=== PATIENT | male | born 1975 | race Caucasian/White ===

== ENCOUNTER 2016-09-30 23:34 | Emergency (ER) | payer MEDICARE ==
[2016-10-01] MEDS ORDERED: CLINDAMYCIN 600MG/50ML PREMIX 600 MG in DEXTROSE 1 BAG IV ONE (00:03)
--- NOTE | 2016-10-01 00:12 | Emergency Department Record ---
History of Present Illness - General Chief complaint: Toothache Stated complaint: TOOTH PAIN Time Seen by Provider: 10/01/16 00:03 Source: Patient Mode of Arrival: Ambulatory Limitations: No limitations - History of Present Illness Initial comments: 40 yo male presents to ED with a CC of dental pain for the past 2-3 days associated with left sided facial swelling and pain. Patient reports numerous dental caries, however left upper front tooth is tender and swollen. Patient denies health problems at his baseline. MD complaint: Tooth pain Onset/Timin -: Days(s) Location: Tooth # 1 - Dental fracture/caries/pain Severity: Severe Severity scale (1-10): 9 Quality: Aching Consistency: Constant Improves with: None Worsens with: None Context- Dental: History of dental caries, Poor dental care - Related Data Home Medications Medication Instructions Recorded Confirmed Last Taken Alprazolam [Alprazolam] 1 mg PO ASDIR 05/15/16 09/30/16 09/30/16 Gabapentin [Gabapentin] 300 mg PO DAILY 05/15/16 09/30/16 09/30/16 Lisinopril [Zestril] 10 mg PO DAILY 05/15/16 09/30/16 09/30/16 Pantoprazole Sodium [Protonix] 40 mg PO DAILY 05/15/16 09/30/16 09/30/16 Prochlorperazine Maleate 10 mg PO DAILY 05/15/16 09/30/16 09/30/16 [Compazine] Previous Rx's Medication Instructions Recorded Clindamycin HCl [Cleocin HCl] 300 mg PO Q6H #39 capsule 10/01/16 Allergies Allergy/AdvReac Type Severity Reaction Status Date / Time morphine Allergy HIVES Verified 09/30/16 23:41 Travel Screening - Travel/Exposure Within Last 30 Days Have you traveled within the last 30 days?: No - Travel/Exposure Within Last Year Have you traveled outside the [place] in the last year?: No - Additonal Travel Details Have you been exposed to anyone with a communicable illness?: No - Travel Symptoms Symptom Screening: None Review of Systems Constitutional: Denies: Chills, Fever, Malaise, Night sweats Eyes: Denies: Eye discharge, Eye pain ENT: Reports: Dental pain. Denies: Congestion, Ear pain, Epistaxis Respiratory: Denies: Cough, Dyspnea Cardiovascular: Denies: Chest pain, Dyspnea on exertion Endocrine: Denies: Fatigue, Heat or cold intolerance Gastrointestinal: Denies: Abdominal pain, Nausea, Vomiting Genitourinary: Denies: Incontinence, Retention Musculoskeletal: Denies: Arthralgia, Back pain, Gout, Joint swelling Skin: Denies: Bruising, Change in color Neurological: Denies: Abnormal gait, Confusion, Headache, Seizure Psychiatric: Denies: Anxiety Hematological/Lymphatic: Denies: Anemia, Blood Clots Past Medical History - SOCIAL HISTORY Smoking Status: Current every day smoker Alcohol Use: None Drug Use: Heavy Drug Use Detail:: Marijuana - RESPIRATORY Hx Respiratory Disorders: Yes Hx COPD: Yes - CARDIOVASCULAR Hx Cardio Disorders: Yes Hx Edema: Yes Hx Hypertension: Yes Hx Irregular Heartbeat: Yes - NEURO Hx Neuro Disorders: Yes Hx Dizziness: Yes Hx Neuropathy: Yes (FEET) - GI Hx GI Disorders: Yes Hx Reflux: Yes Hx Ulcer: Yes - Hx Genitourinary Disorders: No - ENDOCRINE Hx Endocrine Disorders: No - MUSCULOSKELETAL Hx Musculoskeletal Disorders: Yes Hx Arthritis: Yes Comment:: RIGHT KNEE PAIN, HAS LEFT KNEE PAIN ALSO - PSYCH Hx Psych Problems: Yes Hx Depression: Yes (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) - HEMATOLOGY/ONCOLOGY Hx Hematology/Oncology Disorders: No Family Medical History Any Significant Family History?: No Family Hx Comment (NOT TO BE USED IN PLACE OF ITEMS BELOW): CANCER Hx Alcohol Use: Brother/Sister Hx Anxiety: Father, Brother/Sister Hx Cancer: Brother/Sister Hx Diabetes: Mother Hx Heart Disease: Father Hx HTN: Father Hx Resp Disorders: Father Physical Exam - General General Appearance: Alert, Oriented x3, Cooperative, Moderate distress Limitations: No limitations - Head Head exam: Atraumatic, Normocephalic, Normal inspection Head exam detail: negative: Abrasion, Contusion, Castelan's sign, General tenderness, Hematoma, Laceration - Eye Eye exam: Normal appearance. negative: Conjunctival injection, Periorbital swelling, Periorbital tenderness, Scleral icterus - ENT Ear exam: negative: Auricular hematoma, Auricular trauma Nasal Exam: negative: Active bleeding, Discharge, Dried blood, Foreign body Mouth exam: negative: Drooling, Laceration, Muffled voice, Tongue elevation Teeth exam: Dental caries, Dental tenderness #, Fractured tooth #. negative: Gingival enlargement Image of Mouth/Teeth: 1 - Dental pain/swelling/caries present - Neck Neck exam: Normal inspection. negative: Meningismus, Tenderness - Respiratory Respiratory exam: Normal lung sounds bilaterally. negative: Rales, Respiratory distress, Rhonchi, Stridor - Cardiovascular Cardiovascular Exam: Regular rate, Normal rhythm, Normal heart sounds - GI/Abdominal GI/Abdominal exam: Soft. negative: Rebound, Rigid, Tenderness - Rectal Rectal exam: Deferred - exam: Deferred - Extremities Extremities exam: Normal inspection. negative: Calf tenderness, Pedal edema, Tenderness - Back Back exam: Reports: Normal inspection. Denies: CVA tenderness (R), CVA tenderness (L) - Neurological Neurological exam: Alert, Normal gait, Oriented X3 - Psychiatric Psychiatric exam: Normal affect, Normal mood - Skin Skin exam: Normal color. negative: Abrasion Type of lesion: negative: abrasion Course Vital Signs 09/30/16 23:41 Temperature 97.7 F Pulse Rate 66 Respiratory 18 Rate Blood Pressure 127/85 Pulse Ox 98 - Reevaluation(s) Reevaluation #1: 10/01/16 01:29 Patient reassessed, pain is improved, and appears stable for discharge at this time. Will have the patient return to ED in 12 hours for repeat antibiotics and reassessment of his dental infection. Disposition Disposition: Discharge Clinical Impression: Dental caries Disposition: Home, Self-Care Condition: (2) Stable Instructions: Dental Abscess (ED) Additional Instructions: Return to ED if your symptoms worsen or if you have any concerns. Clindamycin as directed. Follow-up with your family doctor in 3-5 days as directed. Prescriptions: Clindamycin HCl [Cleocin HCl] 300 mg PO Q6H #39 capsule Forms: Patient Portal Access Time of Disposition: 01:30
[2016-10-01] MEDS ORDERED: KETOROLAC 30 MG/ML VIAL IVP ONE (00:15)
[2016-10-01] MEDS ORDERED: HYDROCODONE/APAP 7.5/325MG TABLET PO ONE (01:21)
[2016-10-01] MEDS ORDERED: HYDROCODONE/APAP 5/325MG TABLET PO ONE (01:30)
== END 2016-10-01 01:43 | disposition home or self-care (01) ==
LOC: ER 23:34
DX: K02.9 Dental caries, unspecified (principal); R22.0 Localized swelling, mass and lump, head
CPT/HCPCS: 99284 ×2; 96365; 96375; J1885

== ENCOUNTER 2016-10-01 13:17 | Emergency (ER) | payer MEDICARE ==
[2016-10-01] MEDS ORDERED: CLINDAMYCIN 600MG/50ML PREMIX 600 MG in DEXTROSE 1 BAG IV ONE (13:55)
[2016-10-01] MEDS ORDERED: HYDROMORPHONE HCL 1 MG/ML CPJ IVP ONE (13:56)
[2016-10-01] MEDS ORDERED: ONDANSETRON HCL IV 4 MG/2 ML VIAL IVP ONE (13:57)
--- NOTE | 2016-10-01 13:59 | Emergency Department Record ---
History of Present Illness - General Chief complaint: Dental Stated complaint: DENTAL PAIN/RECHECK Time Seen by Provider: 10/01/16 13:52 Source: Patient Mode of Arrival: Ambulatory Limitations: No limitations - History of Present Illness Initial comments: pt here for abx for dental abscess. last here 12 hrs ago. pt doesnt think hes any better yet. complaint: Tooth pain Onset/Timin -: Days(s) Severity: Moderate Severity scale (1-10): 7 Quality: Aching Consistency: Constant Improves with: None Worsens with: None Context- Dental: History of dental caries, Poor dental care Associated Symptoms: Gum swelling, Toothache - Related Data Home Medications Medication Instructions Recorded Confirmed Last Taken Alprazolam [Alprazolam] 1 mg PO ASDIR 05/15/16 10/01/16 09/30/16 Gabapentin [Gabapentin] 300 mg PO DAILY 05/15/16 10/01/16 09/30/16 Lisinopril [Zestril] 10 mg PO DAILY 05/15/16 10/01/16 09/30/16 Pantoprazole Sodium [Protonix] 40 mg PO DAILY 05/15/16 10/01/16 09/30/16 Prochlorperazine Maleate 10 mg PO DAILY 05/15/16 10/01/16 09/30/16 [Compazine] Previous Rx's Medication Instructions Recorded Clindamycin HCl [Cleocin HCl] 300 mg PO Q6H #39 capsule 10/01/16 Hydrocodone/Acetaminophen [[place] 1 tab PO Q6H PRN #7 tab 10/01/16 5mg/325mg] Allergies Allergy/AdvReac Type Severity Reaction Status Date / Time morphine Allergy HIVES Verified 10/01/16 13:35 Travel Screening - Travel/Exposure Within Last 30 Days Have you traveled within the last 30 days?: No - Travel/Exposure Within Last Year Have you traveled outside the [place] in the last year?: No - Additonal Travel Details Have you been exposed to anyone with a communicable illness?: No - Travel Symptoms Symptom Screening: None Review of Systems Reviewed: No additional complaints except as noted below Constitutional: Reports: As per HPI. Denies: Chills, Fever, Malaise, Night sweats, Weakness, Weight change Eyes: Reports: As per HPI. Denies: Eye discharge, Eye pain, Photophobia, Vision change ENT: Reports: As per HPI. Denies: Congestion, Dental pain, Ear pain, Epistaxis , Hearing loss, Throat pain Respiratory: Reports: As per HPI. Denies: Cough, Dyspnea, Hemoptysis, Stridor, Wheezes Cardiovascular: Reports: As per HPI. Denies: Arrhythmia, Chest pain, Dyspnea on exertion, Edema, Murmurs, Orthopnea, Palpitations, Paroxysmal nocturnal dyspnea, Rheumatic Fever, Syncope Endocrine: Reports: As per HPI. Denies: Fatigue, Heat or cold intolerance, Polydipsia, Polyuria Gastrointestinal: Reports: As per HPI. Denies: Abdominal pain, Constipation, Diarrhea, Hematemesis, Hematochezia, Melena, Nausea, Vomiting Genitourinary: Reports: As per HPI. Denies: Dysuria, Frequency, Hematuria, Incontinence, Retention, Testicular pain, Testicular mass, Urgency Musculoskeletal: Reports: As per HPI. Denies: Arthralgia, Back pain, Gout, Joint swelling, Myalgia, Neck pain Skin: Reports: As per HPI. Denies: Bruising, Change in color, Change in hair/ nails, Lesions, Pruritus, Rash Neurological: Reports: As per HPI. Denies: Abnormal gait, Confusion, Headache, Numbness, Paresthesias, Seizure, Tingling, Tremors, Vertigo, Weakness Psychiatric: Reports: As per HPI. Denies: Anxiety, Auditory hallucinations, Depression, Homicidal thoughts, Suicidal thoughts, Visual hallucinations Hematological/Lymphatic: Reports: As per HPI. Denies: Anemia, Blood Clots, Easy bleeding, Easy bruising, Swollen glands Past Medical History - SOCIAL HISTORY Smoking Status: Current every day smoker Alcohol Use: None Drug Use: None - RESPIRATORY Hx Respiratory Disorders: Yes Hx COPD: Yes - CARDIOVASCULAR Hx Cardio Disorders: Yes Hx Edema: Yes Hx Hypertension: Yes Hx Irregular Heartbeat: Yes - NEURO Hx Neuro Disorders: Yes Hx Dizziness: Yes Hx Neuropathy: Yes (FEET) - GI Hx GI Disorders: Yes Hx Reflux: Yes Hx Ulcer: Yes - Hx Genitourinary Disorders: No - ENDOCRINE Hx Endocrine Disorders: No - MUSCULOSKELETAL Hx Musculoskeletal Disorders: Yes Hx Arthritis: Yes Comment:: RIGHT KNEE PAIN, HAS LEFT KNEE PAIN ALSO - PSYCH Hx Psych Problems: Yes Hx Depression: Yes (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) - HEMATOLOGY/ONCOLOGY Hx Hematology/Oncology Disorders: No Family Medical History Any Significant Family History?: Yes Family Hx Comment (NOT TO BE USED IN PLACE OF ITEMS BELOW): CANCER Hx Alcohol Use: Brother/Sister Hx Anxiety: Father, Brother/Sister Hx Cancer: Brother/Sister Hx Diabetes: Mother Hx Heart Disease: Father Hx HTN: Father Hx Resp Disorders: Father Physical Exam - General General Appearance: Alert, Oriented x3, Cooperative, Mild distress - Head Head exam: Normal inspection Image of Face/Head: 1 - swelling, tender - Eye Eye exam: Normal appearance, PERRL, EOMI Pupils: Normal accommodation - ENT ENT exam: Normal exam, Mucous membranes moist, Normal external ear exam, Normal orophraynx Ear exam: Normal external inspection. negative: External canal tenderness Nasal Exam: Normal inspection. negative: Discharge, Sinus tenderness Mouth exam: Normal external inspection, Tongue normal Teeth exam: Normal inspection. negative: Dental caries Throat exam: Normal inspection. negative: Tonsillar erythema, Tonsillar exudate - Neck Neck exam: Normal inspection, Full ROM. negative: Tenderness - Respiratory Respiratory exam: Normal lung sounds bilaterally. negative: Respiratory distress - Cardiovascular Cardiovascular Exam: Regular rate, Normal rhythm, Normal heart sounds - GI/Abdominal GI/Abdominal exam: Soft, Normal bowel sounds. negative: Tenderness - Rectal Rectal exam: Deferred - exam: Deferred - Extremities Extremities exam: Normal inspection, Full ROM, Normal capillary refill. negative: Tenderness - Back Back exam: Reports: Normal inspection, Full ROM. Denies: Muscle spasm, Rash noted, Tenderness - Neurological Neurological exam: Alert, CN II-XII intact, Normal gait, Oriented X3 - Psychiatric Psychiatric exam: Normal affect, Normal mood - Skin Skin exam: Dry, Intact, Normal color, Warm Type of lesion: Abscess Distribution of rash: Face Course Vital Signs 10/01/16 13:29 Temperature 97.7 F Pulse Rate 78 Respiratory 20 Rate Blood Pressure 125/72 Pulse Ox 98 Disposition Disposition: Discharge Clinical Impression: Dental abscess Disposition: Home, Self-Care Condition: (1) Good Instructions: Dental Abscess (ED) Additional Instructions: follow up in 12 hrs for repeat antibiotics. return sooner if worse. sleep elevated. Prescriptions: Hydrocodone/Acetaminophen [[place] 5mg/325mg] 1 tab PO Q6H PRN #7 tab PRN Reason: Pain - General Forms: Patient Portal Access
== END 2016-10-01 15:48 | disposition home or self-care (01) ==
LOC: ER 13:17
DX: K04.7 Periapical abscess without sinus (principal)
CPT/HCPCS: 99282 ×2; 96365; 96375; J2405; J1170

== ENCOUNTER 2016-10-02 01:58 | Emergency (ER) | payer MEDICARE ==
[2016-10-02] MEDS ORDERED: AMPICILLIN SODIUM/SULBACTAM NA 3 G in 0.9 % SODIUM CHLORIDE 100ML 100 ML IVPB ONE (02:14)
--- NOTE | 2016-10-02 02:20 | Emergency Department Record ---
History of Present Illness - General Chief Complaint: Recheck - Other Stated Complaint: RECHECK Time Seen by Provider: 10/02/16 02:13 Source: Patient Mode of arrival: Ambulatory Limitations: No limitations - History of Present Illness Initial Comments: 40 yo male presents to ED for re-evaluation and treatment of a dental abscess with worsening edema and STS of the face. Patient has been receiving Clindamycin intravenously and taking oral clindamycin for the past 24 hours. Patient denies fevers, chills, nausea, or vomiting symptoms. patient denies health problems at his baseline other than HTN. MD Complaint: Needs IV antibiotics Onset/Timin -: Days(s) Initial Visit For: Other Returns Today for: Other Symptoms Since Prior Visit: Worsening pain, Worsening swelling Associated Symptoms: None - Related Data Home Medications Medication Instructions Recorded Confirmed Last Taken Alprazolam [Alprazolam] 1 mg PO ASDIR 05/15/16 10/02/16 09/30/16 Gabapentin [Gabapentin] 300 mg PO DAILY 05/15/16 10/02/16 09/30/16 Lisinopril [Zestril] 10 mg PO DAILY 05/15/16 10/02/16 09/30/16 Pantoprazole Sodium [Protonix] 40 mg PO DAILY 05/15/16 10/02/16 09/30/16 Prochlorperazine Maleate 10 mg PO DAILY 05/15/16 10/02/16 09/30/16 [Compazine] Previous Rx's Medication Instructions Recorded Clindamycin HCl [Cleocin HCl] 300 mg PO Q6H #39 capsule 10/01/16 Hydrocodone/Acetaminophen [[place] 1 tab PO Q6H PRN #7 tab 10/01/16 5mg/325mg] Allergies Allergy/AdvReac Type Severity Reaction Status Date / Time morphine Allergy HIVES Verified 10/02/16 02:04 Travel Screening - Travel/Exposure Within Last 30 Days Have you traveled within the last 30 days?: No - Travel/Exposure Within Last Year Have you traveled outside the [place] in the last year?: No - Additonal Travel Details Have you been exposed to anyone with a communicable illness?: No - Travel Symptoms Symptom Screening: None Review of Systems Constitutional: Denies: Chills, Fever, Malaise, Night sweats Eyes: Reports: Eye pain. Denies: Eye discharge, Photophobia ENT: Reports: Dental pain. Denies: Congestion, Ear pain, Epistaxis Respiratory: Denies: Cough, Dyspnea Cardiovascular: Denies: Chest pain, Dyspnea on exertion Endocrine: Denies: Fatigue, Heat or cold intolerance Gastrointestinal: Denies: Abdominal pain, Nausea, Vomiting Genitourinary: Denies: Incontinence, Retention Musculoskeletal: Denies: Arthralgia, Back pain, Gout, Joint swelling Skin: Denies: Bruising, Change in color Neurological: Denies: Abnormal gait, Confusion, Headache, Tingling Psychiatric: Denies: Anxiety Hematological/Lymphatic: Denies: Anemia, Blood Clots Past Medical History - SOCIAL HISTORY Smoking Status: Current every day smoker Alcohol Use: None Drug Use: Heavy Drug Use Detail:: Marijuana - RESPIRATORY Hx Respiratory Disorders: Yes Hx COPD: Yes - CARDIOVASCULAR Hx Cardio Disorders: Yes Hx Edema: Yes Hx Hypertension: Yes Hx Irregular Heartbeat: Yes - NEURO Hx Neuro Disorders: Yes Hx Dizziness: Yes Hx Neuropathy: Yes (FEET) - GI Hx GI Disorders: Yes Hx Reflux: Yes Hx Ulcer: Yes - Hx Genitourinary Disorders: No - ENDOCRINE Hx Endocrine Disorders: No - MUSCULOSKELETAL Hx Musculoskeletal Disorders: Yes Hx Arthritis: Yes Comment:: RIGHT KNEE PAIN, HAS LEFT KNEE PAIN ALSO - PSYCH Hx Psych Problems: Yes Hx Depression: Yes (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) - HEMATOLOGY/ONCOLOGY Hx Hematology/Oncology Disorders: No Family Medical History Any Significant Family History?: No Family Hx Comment (NOT TO BE USED IN PLACE OF ITEMS BELOW): CANCER Hx Alcohol Use: Brother/Sister Hx Anxiety: Father, Brother/Sister Hx Cancer: Brother/Sister Hx Diabetes: Mother Hx Heart Disease: Father Hx HTN: Father Hx Resp Disorders: Father Physical Exam - General General Appearance: Alert, Oriented x3, Cooperative, Moderate distress Limitations: No limitations - Head Head exam: Atraumatic, Normocephalic, Normal inspection Head exam detail: negative: Abrasion, Contusion, Castelan's sign, General tenderness, Hematoma, Laceration - Eye Eye exam: EOMI, Periorbital swelling, Periorbital tenderness, Other (no pain with extra-ocular movment). negative: Conjunctival injection, Scleral icterus - ENT Ear exam: negative: Auricular hematoma, Auricular trauma Nasal Exam: negative: Active bleeding, Discharge, Dried blood, Sinus tenderness Mouth exam: negative: Drooling, Laceration, Muffled voice, Tongue elevation Teeth exam: Dental caries Throat exam: negative: Tonsillar erythema, Tonsillomegaly, Tonsillar exudate, R peritonsillar mass Image of Mouth/Teeth: 1 - [place] caries with dental tenderness present, no gingival abscess is present - Neck Neck exam: Normal inspection. negative: Meningismus, Tenderness - Respiratory Respiratory exam: Normal lung sounds bilaterally. negative: Respiratory distress, Rhonchi, Stridor, Wheezes - Cardiovascular Cardiovascular Exam: Regular rate, Normal rhythm, Normal heart sounds - GI/Abdominal GI/Abdominal exam: Soft. negative: Distended, Rebound, Rigid, Tenderness - Rectal Rectal exam: Deferred - exam: Deferred - Extremities Extremities exam: Normal inspection. negative: Pedal edema, Tenderness - Back Back exam: Denies: CVA tenderness (R), CVA tenderness (L) - Neurological Neurological exam: Alert, Normal gait, Oriented X3 - Psychiatric Psychiatric exam: Normal affect, Normal mood - Skin Skin exam: Normal color. negative: Abrasion Type of lesion: negative: abrasion Course Vital Signs 10/02/16 01:59 Temperature 97.5 F L Pulse Rate 96 H Respiratory 18 Rate Blood Pressure 116/64 Pulse Ox 98 - Reevaluation(s) Reevaluation #1: 10/02/16 02:20 [facility] does not have oral-maxillofacial surgery available. Will contact [facility] for transfer. IV Unasyn ordered for the patient as well baseline laboratory studies. The patient has no evidence for orbital cellulitis on examination. Reevaluation #2: 10/02/16 02:25 Case was discussed with Dr. Andersen, will accept transfer for oral- maxillofacial consultation and likely admission for worsening symptoms. Reevaluation #3: 10/02/16 03:01 Labs reviewed, WBC 14, CRP 1.8 . ESR pending. Medical Decision Making - Lab Data Result diagrams: 10/02/16 02:25 10/02/16 02:25 Disposition Disposition: Transfer Clinical Impression: Dental abscess, Dental caries Disposition: Acute [facility] Transfer Transfer To: [facility] Reason For Transfer: Dental abscess Accepting Physician: Busschots Time Discussed w/Accepting Physician: 02:22 Condition: (2) Stable Forms: Patient Portal Access
[2016-10-02] MEDS ORDERED: HYDROMORPHONE HCL 1 MG/ML CPJ IVP ONE (02:24)
[2016-10-02] MEDS ORDERED: ONDANSETRON HCL IV 4 MG/2 ML VIAL IVP ONE (02:25)
[2016-10-02] MEDS ORDERED: 0.9 % SODIUM CHLORIDE 1000ML 1,000 ML IV SCH (02:30)
[2016-10-02 02:31] LABS: BASO % 0.1 % (0-6); EOS % 1.1 % (0-6); GRAN % 65.5 % (47-80); HEMATOCRIT 38.8 % (42.0-52.0); HEMOGLOBIN 13.7 gm/dl (14.0-18.0); LYMPH % 22.5 % (16-45); MEAN CELL VOLUME 100.3 fl (81-97); MEAN CORPUSCULAR HEMOGLOBIN 35.4 pg (27-33); MEAN CORPUSCULAR HGB CONC 35.3 g/dl (32-36); MEAN PLATELET VOLUME 9.4 fl (7.4-10.4); MONO % 10.8 % (0-9); PLATELET COUNT 295 K/uL (130-400); RED BLOOD COUNT 3.87 M/uL (4.40-5.70); RED CELL DISTRIBUTION WIDTH 12.8 % (11.5-14.5)
[2016-10-02 02:42] LABS: ALB/GLOB RATIO 1.3 (1.1-1.8); ALBUMIN 3.7 gm/dL (3.5-5.0); ALKALINE PHOSPHATASE 92 U/L (38-126); ALT/SGPT 33 U/L (21-72); ANION GAP 9.4 (7-16); AST/SGOT 18 U/L (17-59); BILIRUBIN,TOTAL 0.53 mg/dL (0.2-1.3); BLOOD UREA NITROGEN 14 mg/dL (9-20); CARBON DIOXIDE 31.6 mmol/L (22-30); CREATININE 0.7 mg/dL (0.66-1.25); EST GLOMERULAR FILTRATION RATE > 60 ml/min; GLUCOSE,RANDOM 92 mg/dL (70-110); TOTAL PROTEIN 6.5 gm/dL (6.3-8.2)
== END 2016-10-02 02:48 | disposition short-term general hospital (02) ==
LOC: ER 01:58
DX: K04.7 Periapical abscess without sinus (principal); K02.9 Dental caries, unspecified; I10 Essential (primary) hypertension; F17.210 Nicotine dependence, cigarettes, uncomplicated
CPT/HCPCS: 99285 ×2; 96365; 96375; 85025; 85651; 86140; 80053; J0295; J2405; J1170; J7030

== ENCOUNTER 2019-05-10 11:16 | Emergency (ER) | payer MEDICARE, MEDICAID ==
[2019-05-10] MEDS ORDERED: ORPHENADRINE CITRATE 60MG/2ML VIAL IM ONE (11:48)
[2019-05-10] MEDS ORDERED: KETOROLAC 30 MG/ML VIAL IM ONE (11:48)
--- NOTE | 2019-05-10 11:51 | Emergency Department Record ---
History of Present Illness - General Chief Complaint: Back Pain/Injury Stated Complaint: BACK PAIN Time Seen by Provider: 05/10/19 11:37 Source: Patient Mode of Arrival: Wheelchair Limitations: No limitations - History of Present Illness Initial Comments: The patient is here due to worsening of his chronic low back pain. He has a hx of an L4 fusion with chronic pain and is scheduled to see a new surgeon at [facility] this next week. He was lifting a vacumn and twisted and felt worsening pain to his low back with intermittent radiation of the pain down the R leg. He has had some leg numbness and weakness slightly worse than his chronic symptoms. The patient denies any bowel or bladder incontinence. MD Complaint: Back pain Onset/Timin -: Hour(s) Similar Symptoms Previously: Yes Place: Home Radiation: Right leg Severity: Moderate Severity scale (1-10): 10 Quality: Burning, Sharp Consistency: Constant Improves With: None Worsens With: None Context: While lifting Associated Symptoms: Denies other symptoms Treatments Prior to Arrival: Acetaminophen Treatment Prior to Arrival Comment:: 1000 - Related Data Home Medications Medication Instructions Recorded Confirmed Last Taken Gabapentin [Neurontin] 600 mg PO TID 05/10/19 05/10/19 05/10/19 Loratadine 10 mg PO 05/10/19 05/10/19 Ofloxacin [Ocuflox] 05/10/19 05/10/19 05/10/19 Allergies Allergy/AdvReac Type Severity Reaction Status Date / Time morphine Allergy HIVES Verified 05/10/19 11:26 Travel Screening - Travel/Exposure Within Last 30 Days Have you traveled within the last 30 days?: No - Travel/Exposure Within Last Year Have you traveled outside the [place] in the last year?: No - Additonal Travel Details Have you been exposed to anyone with a communicable illness?: No - Travel Symptoms Symptom Screening: None Past Medical History - SOCIAL HISTORY Smoking Status: Former smoker Alcohol Use: None Drug Use: Heavy Drug Use Detail:: Marijuana - RESPIRATORY Hx Respiratory Disorders: Yes Hx COPD: Yes - CARDIOVASCULAR Hx Cardio Disorders: Yes Hx Edema: Yes Hx Hypertension: Yes Hx Irregular Heartbeat: Yes - NEURO Hx Neuro Disorders: Yes Hx Dizziness: Yes Hx Neuropathy: Yes (FEET) - GI Hx GI Disorders: Yes Hx Reflux: Yes Hx Ulcer: Yes - Hx Genitourinary Disorders: No - ENDOCRINE Hx Endocrine Disorders: No - MUSCULOSKELETAL Hx Musculoskeletal Disorders: Yes Hx Arthritis: Yes Comment:: RIGHT KNEE PAIN, HAS LEFT KNEE PAIN ALSO - PSYCH Hx Psych Problems: Yes Hx Depression: Yes (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) - HEMATOLOGY/ONCOLOGY Hx Hematology/Oncology Disorders: No Family Medical History Any Significant Family History?: Yes Family Hx Comment (NOT TO BE USED IN PLACE OF ITEMS BELOW): CANCER Hx Alcohol Use: Brother/Sister Hx Anxiety: Father, Brother/Sister Hx Cancer: Brother/Sister Hx Diabetes: Mother Hx Heart Disease: Father Hx HTN: Father Hx Resp Disorders: Father Physical Exam - General General Appearance: Alert, Oriented x3, Cooperative, No acute distress - Head Head exam: Atraumatic, Normocephalic, Normal inspection - Eye Eye exam: Normal appearance, PERRL - Neck Neck exam: Normal inspection, Full ROM. negative: Tenderness - Respiratory Respiratory exam: Normal lung sounds bilaterally. negative: Respiratory distress - Cardiovascular Cardiovascular Exam: Regular rate, Normal rhythm, Normal heart sounds - GI/Abdominal GI/Abdominal exam: Soft, Normal bowel sounds. negative: Tenderness - Extremities Extremities exam: Normal inspection, Full ROM, Normal capillary refill, Other (Neg SLR L but pos SLR R at 75 degrees.). negative: Tenderness - Back Back exam: Reports: Normal inspection, Paraspinal tenderness (L3-5), Vertebral tenderness (L3-5) - Neurological Neurological exam: Alert, Reflexes normal (The patellar and achilles reflexes are 2+ and equal bilaterally. ). negative: Altered, Motor sensory deficit - Skin Skin exam: negative: Rash Course Vital Signs 05/10/19 05/10/19 11:34 11:44 Temperature 98.6 F 98.6 F Pulse Rate 66 66 Respiratory 18 18 Rate Blood Pressure 106/75 Pulse Ox 99 99 - Reevaluation(s) Reevaluation #1: The patient and his became angry over my plan to check the patient's rectal tone and post void bladder residual capacity. I did explain that those things are needed to assess the patient's lumbar and sacral nerve functions. The patient then became very angry and demanded to leave. He then got up and walked to the door and his did put him in a wheelchair and pushed him out the door to the car. The patient and were very belligerent and would not wait to sign the AMA papers. 05/10/19 11:58 Disposition Disposition: Discharge Clinical Impression: Chronic back pain Qualifiers: Back pain laterality: unspecified Sciatica presence: unspecified whether sciatica present Disposition: Against Medical Advice Condition: (2) Stable Instructions: Low Back Strain (ED) Forms: Patient Portal Access Time of Disposition: 12:01 Quality - Quality Measures Quality Measures: N/A - Blood Pressure Screening View Details: Yes Does Patient Have Any of the Following: No Blood Pressure Classification: Normal BP Reading Systolic Measurement: 106 Diastolic Measurement: 75 Screening for High Blood Pressure: < Normal BP, F/U Not Required > [[id number]]
== END 2019-05-10 11:51 | disposition left against medical advice (07) ==
LOC: ER 11:16
DX: M54.5 Low back pain (principal); G89.29 Other chronic pain; R20.0 Anesthesia of skin; Z98.1 Arthrodesis status; I10 Essential (primary) hypertension; Z87.891 Personal history of nicotine dependence
CPT/HCPCS: 99282